=== PATIENT | female | born 1975 | race Caucasian/White ===

== ENCOUNTER 2016-05-15 00:08 | Inpatient (IN) ==
[2016-05-15] MEDS ORDERED: LORazepam 2 MG/1 ML VIAL IV STA (00:31)
[2016-05-15] MEDS ORDERED: SODIUM CHLORIDE 0.9% 2,000 ML IV STA (00:31)
[2016-05-15] MEDS ORDERED: HALOPERIDOL 5 MG/ML AMP IM STA (00:31)
[2016-05-15] MEDS ORDERED: HALOPERIDOL 5 MG/ML AMP ONE (00:35)
[2016-05-15] MEDS ORDERED: LORazepam 2 MG/1 ML VIAL ONE (00:36)
--- NOTE | 2016-05-15 00:44 | Emergency Department Note ---
Arrival - Arrival ED Nursing Triage Note: pt to er 10 via ems coming from home with c/o having drug abuse possible spice usage. Mode of Arrival: Stretcher Limitations: Altered Mental Status Source: EMS - History of Present Illness Onset (ago): hour(s) (onset of symptoms in the last 2 hours) Consistency: constant <Jose Matta - Last Filed: 05/15/16 01:45> <Surinder Mayers - Last Filed: 05/15/16 04:16> - Arrival Chief Complaint: Psychiatric Time Seen by Provider: 05/15/16 00:31 - History of Present Illness HPI Narrative: This 40-year-old white female presents via EMS having been called to her home because of bizarre behavior and hallucinations. The patient currently is babbling incoherently and obviously by her head movements and eye movements is having visual and auditory hallucinations. It is impossible for any type of history to be cleaned from the woman as she currently is in a panic mode. EMS had no insight into what may have transpired prior to their call as far as drug use. Certainly the patient cannot give us any information. (Jose Matta) Allergies/Adverse Reactions: Allergies Allergy/AdvReac Type Severity Reaction Status Date / Time Unable to Obtain Allergy Verified 05/15/16 01:04 Home Medications: Home Medications Medication Instructions Recorded Confirmed Type Unable To Obtain [Unable to Obtain] 05/15/16 05/15/16 History Review of System - Review of System ROS unobtainable: due to mental status <Jose Matta - Last Filed: 05/15/16 01:45> Medical,Surgical,& Family Hx - Social History Smoking Status: Smoker, status unknown Frequency of Alcohol Use: Unknown Type of Drug Use: Unknown <Jose Matta - Last Filed: 05/15/16 01:45> Exam <Jose Matta - Last Filed: 05/15/16 01:45> <Surinder Mayers - Last Filed: 05/15/16 04:16> Physical Examination: GENERAL: Well developed, well nourished white female thrashing on the gurney yelling out incoherently. HEENT: Normocephalic. No trauma. Moist mucous membranes. EOMI. PERRLA. ENT clear NECK: Supple. No adenopathy. CARDIAC: Regular. No murmurs. Heart rate 140 CHEST: Clear to auscultation. No respiratory distress. O2 sat 100% ABDOMEN: Soft. Nontender. Active bowel sounds. EXTREMITIES: No trauma. Normal ROM. No pedal edema. SKIN: No diaphoresis. No rash. NEURO: Alert. In manic mode with motor sensory vibratory intact. No focal deficits. (Jose Matta) Vital Signs: Vital Signs Temperature 97.6 F 05/15/16 00:08 Pulse Rate 142 H 05/15/16 00:08 Respiratory Rate 22 05/15/16 00:08 Blood Pressure 167/97 05/15/16 00:08 O2 Sat by Pulse Oximetry 100 05/15/16 00:08 (Jose Matta) (Surinder Mayers) Course <Jose Matta - Last Filed: 05/15/16 01:45> <Surinder Mayers - Last Filed: 05/15/16 04:16> Course Narrative: CT head is negative. Patient U DS is positive for amphetamines, cocaine, marijuana. Alcohol is negative. CK is relatively normal. Patient was given Haldol and Ativan. She is resting comfortably and protecting her airway. Hospitalist has been consulted and will admit for acute intoxication. (Surinder Mayers) Results - Labs CBC & BMP: 05/15/16 00:20 05/15/16 00:20 <Jose Matta - Last Filed: 05/15/16 01:45> - Labs CBC & BMP: 05/15/16 00:20 05/15/16 00:20 <Surinder Mayers - Last Filed: 05/15/16 04:16> - Labs Labs: I have reviewed the blood work and noted its gross normalcy of noted UDS positive for meth, cocaine, and pot. (Jose Matta) - Impressions EKG: Sinus tachycardia at 130 with normal VT interval and QRS duration with nonspecific ST changes. No acute injury pattern noted. (Jose Matta) Disposition <Jose Matta - Last Filed: 05/15/16 01:45> <Surinder Mayers - Last Filed: 05/15/16 04:16> Clinical Impression: polysubstance abuse
[2016-05-15 00:51] LABS: Basophils % 0.3 % (0.0-0.8); Eosinophils # 0.3 10*3/uL (0.0-0.87); Eosinophils % 2.8 % (0.00-10.9); Hematocrit 43.2 VOL% (35.7-47.0); Hemoglobin 14.6 GM/DL (12.0-16.0); Immature Granulocytes % 0.3 %; Immature Granulocytes Absolute 0.03 #; Lymphocytes % 20.5 % (21.3-54.2); Mean Corpuscular HGB Conc 33.8 GM/DL (32-36); Mean Corpuscular Hemoglobin 27 PG (27-34); Mean Corpuscular Volume 81.2 FL (87-102); Mean Platelet Volume 11.7 FL (9.6-12.0); Monocytes # 0.9 10*3/uL (0.11-0.8); Monocytes % 9.3 % (1.7-12.7); Neutrophils # 6.5 10*3/uL (1.4-7.4); Neutrophils % 66.8 % (38.7-73.9); Platelet Count 285 10*3/uL (130-400); Red Blood Count 5.32 10*6/uL (3.8-5.5); Red Cell Distribution Width 15.2 % (9.3-17.3); White Blood Count 9.7 10*3/uL (4.5-13.71)
[2016-05-15 01:02] LABS: Alanine Aminotransferase 19 U/L (13-56); Albumin 4.4 G/DL (3.4-5.0); Alkaline Phosphatase 96 U/L (45-117); Aspartate Amino Transferase 17 U/L (0-37); Calcium 9.3 MG/DL (8.5-10.1); Total Protein 7.6 G/DL (6.4-8.3)
[2016-05-15 01:03] LABS: Acetaminophen < 2.0 UG/ML (10-30); Blood Urea Nitrogen 21 MG/DL (7-18); Glucose 279 MG/DL (74-106); Salicylate < 2.8 MG/DL (2.8-20); Sodium 143 MMOL/L (136-145); Troponin I Only < 0.015 NG/ML (0.00-0.045)
--- NOTE | 2016-05-15 01:05 | EKG Report ---
Stationary ECG Study [facility] ER Test Date: 05/15/2016 1:01:41 AM Pat Name: JON LOPEZ Department: Room: Gender: F Irradiated [employer] Handler: [id number] : [id number] Requested by: Jose Barclay Order Number: [id number] Gerda MD: ANTONY MOODY Intervals [place] Rate: 131 P: 67 MA: 139 QRS: 52 QRSD: 86 T: 59 QT: 333 QTc: 410 Interpretive Statements SINUS TACHYCARDIA WITH MILD NON-SPECIFIC ST-T DEPRESSION Electronically Signed On 05-15-16 11:00:43 [employer] by ANTONY MOODY [email or web address]
[2016-05-15 01:15] LABS: Apearance,Urine Slightly Hazy (Clear); Bilirubin,Urine Negative (Negative); Blood, Urine Small mg/dL (Negative); Glucose,Urine (UA) >=500 mg/dL (Negative); Hyaline Casts,Urine 3 /LPF (0-3); Ketones,Urine 20 mg/dL (Negative); Mucus,Urine Many /LPF (Occasional); Nitrite,Urine Negative (Negative); Protein,Urine 30 MG/DL; RBC,Urine 2 /HPF (0-4); Squamous Epithelial Cell,Urine Occasional /HPF (0-10); Urine Color Yellow (Yellow); Urine Specific Gravity 1.025 (1.001-1.035); WBC,Urine 3 /HPF (0-6)
[2016-05-15] MEDS ORDERED: POTASSIUM BICARB EFFERVESCENT 25 MEQ TABLET PO ONE (01:36)
[2016-05-15 01:38] LABS: Barbiturates Screen,Urine Negative (Negative); Benzodiazepines Screen,Urine Negative (Negative); Cannabinoid Screen,Urine Positive (Negative); Opiate Screen,Urine Negative (Negative); Phencyclidine Screen,Urine Negative (Negative)
[2016-05-15] MEDS ORDERED: POTASSIUM CHLORIDE 20 MEQ PACK ONE (01:42)
--- NOTE | 2016-05-15 05:43 | Hospitalist History & Physical ---
Assessment and Plan (1) Acute metabolic encephalopathy Status: Acute Assessment and plan: The patient appears to have symptoms of synthetic cannabinoids use. We will going to admit her to intensive care unit for close monitoring. The patient does not require intubation for protection of airway at this time. Current Visit: Yes (2) Polysubstance abuse Status: Acute Current Visit: Yes History of Present Illness Chief complaint: altered mental status History of present illness: Ms. Perry is a 40 year old female who was brought from home via ambulance due to altered mental status following polysubstance abuse. The patient's symptoms at the time of admission to the emergency room were moderate to severe , continuous, and improved after sedation. The patient is presently resting quietly on the gurney in the emergency room she appears confused but is not agitated as she was when she was admitted. The patient seems to have acute metabolic encephalopathy due to polysubstance abuse which may include synthetic cannabinoids. Home Medications Medication Instructions Recorded Confirmed Type Unable To Obtain [Unable to Obtain] 05/15/16 05/15/16 History Allergies Allergy/AdvReac Type Severity Reaction Status Date / Time Unable to Obtain Allergy Verified 05/15/16 01:04 Medical,Surgical,& Family Hx - Medical History Medical History: noncontributory - Social History Smoking Status: Smoker, status unknown Frequency of Alcohol Use: Unknown Type of Drug Use: Cocaine, Marijuana, Methamphetamine Marital Status: Legally Lives With:: Significant Other Functional capacity: independent ambulation ROS unobtainable: due to mental status Exam - Constitutional Vitals: Period Temp Pulse Resp BP Sys/Frias Pulse Ox Last 24 Hr 97.6 F 142 22 167/97 100 Exam: Constitutional System: Mild distress. No tremulousness. Resting in bed and confused. The patient appears sedated. The patient is guarding airway Head: Normocephalic, atraumatic. Ears, Nose and Throat System: No evidence of Otitis or Mastoiditis. No epistaxis or discharge Eyes System: Pupils equal, round, and reactive. Extraocular muscles intact. Neck: Supple, without adenopathy, No jugular venous distention. No thyromegaly , neck mass, or prior surgery apparent. Respiratory System: Chest clear to auscultation. Cardiovascular System: Heart with regular rate and rhythm. No murmur. GI System: Abdomen soft, nontender. Normoactive bowel sounds present. Musculoskeletal System: limbs with no pedal edema. Full distal pulses. Neurological System: The patient is sedated and resting quietly at present Psychiatric System: The patient is passive it was drawn at this time Results - Labs CBC & BMP: 05/15/16 00:20 05/15/16 00:20 Lab Results: I have reviewed the past 24 hour labs
[2016-05-15] MEDS ORDERED: ONDANSETRON 4 MG/2 ML VIAL IV PRN (06:09)
[2016-05-15] MEDS ORDERED: ZIPRASIDONE 20 MG/1 ML VIAL IM PRN (06:09)
[2016-05-15] MEDS: SODIUM CHLORIDE 0.9% 1,000 ML IV SCH ×2 (07:31→15:15)
[2016-05-15] MEDS: ENOXAPARIN 40 MG/0.4 ML SYRINGE SUBCUT SCH (07:32)
[2016-05-15] MEDS ORDERED: GLUCAGON 1 MG VIAL IM PRN (08:44)
[2016-05-15] MEDS ORDERED: LORazepam 0.5 MG TABLET PO PRN (08:44)
[2016-05-15] MEDS ORDERED: DEXTROSE 50% 25 GM/50 ML VIAL IV PRN (08:44)
[2016-05-15] MEDS: NICOTINE 21 MG/24 HR PATCH TRANSDERM SCH (09:06)
[2016-05-15] MEDS: INSULIN LISPRO 100 UNIT/ML SUBCUT SCH ×3 (11:32→22:50)
--- NOTE | 2016-05-15 13:30 | Hospitalist Progress Note ---
Assessment and Plan (1) Bipolar 1 disorder Status: Acute Assessment and plan: needs evaluation by psych, outpatient [facility] Current Visit: Yes (2) Polysubstance abuse Status: Acute Assessment and plan: nicotine patch and ativan prn Current Visit: Yes (3) Hypokalemia Status: Acute Assessment and plan: k dur 40 meq times one now Current Visit: Yes Hospitalist: Subjective Interval history: Patient denies any thoughts of trying to harm herself. I asked patient where she has a history of depression or anxiety but she had said no. Her mother was in the room and her mother said that that schizophrenia and bipolar runs in the family in fact her sister is also bipolar. I asked patient if she was having any hallucinations is far is voices or visual hallucinations. She says that she had some visual hallucinations but it is mainly the voices. I asked her if the voices are asking her to hurt herself or hurt others and she said no. Discussed case with Dr. Hoffman over [facility] and he feels this could be handled as an outpatient. Exam - Constitutional Vitals: Period Temp Pulse Resp BP Sys/Frias Pulse Ox Last 24 Hr 98.1 F 86-106 13-21 97-120/59-91 97-100 Exam: HR-Tachy lungs-CTAB GI-+bs soft and nt psych reports hearing voices and having visual hallucinations, denies suicidal or homicidal thoughts or voices Results - Labs CBC & BMP: 05/15/16 00:20 05/15/16 00:20 Lab Results: I have reviewed the past 24 hour labs Specialty Discharge - Follow Up or Referrals - Discharge Medications No Action No Known Home Medications [No Known Home Medications]
[2016-05-15] MEDS ORDERED: POTASSIUM CHLORIDE 20 MEQ TABLET PO ONE (13:31)
--- NOTE | 2016-05-15 16:40 | CT Report ---
History: Acute metabolic encephalopathy. Hallucinations Date: 05/15/2016 Study: CT head without contrast Comparison exam: No previous Transaxial CT sections were obtained through the head without IV contrast. Total DLP measures 942.4 mGy*cm. The study was also reviewed by [facility]. The ventricles are midline in position without evidence of hydrocephalus. There is no mass or parenchymal hemorrhage. There is no gross CT evidence of acute cortical stroke. There is no extra-axial hematoma. The partially visualized paranasal sinuses and mastoid air cells are clear. Impression: No acute intracranial process PROCEDURE INTERPRETED AT [facility] DEPARTMENT OF RADIOLOGY Final Report Signed by: Dr. Sunshine Solorio
[2016-05-16 06:16] LABS: Basophils % 0.4 % (0.0-0.8); Eosinophils # 0.3 10*3/uL (0.0-0.87); Eosinophils % 5.3 % (0.00-10.9); Hematocrit 39.6 VOL% (35.7-47.0); Immature Granulocytes % 0.4 %; Immature Granulocytes Absolute 0.02 #; Lymphocytes % 41.1 % (21.3-54.2); Mean Corpuscular HGB Conc 32.8 GM/DL (32-36); Mean Corpuscular Hemoglobin 28 PG (27-34); Mean Corpuscular Volume 85.5 FL (87-102); Mean Platelet Volume 11.9 FL (9.6-12.0); Monocytes # 0.4 10*3/uL (0.11-0.8); Monocytes % 8.8 % (1.7-12.7); Neutrophils # 2.2 10*3/uL (1.4-7.4); Platelet Count 185 10*3/uL (130-400); Red Blood Count 4.63 10*6/uL (3.8-5.5); Red Cell Distribution Width 15.5 % (9.3-17.3); White Blood Count 4.9 10*3/uL (4.5-13.71)
[2016-05-16 06:45] LABS: Albumin 3.1 G/DL (3.4-5.0); Bilirubin,Total 0.6 MG/DL (0.2-1.0); Calcium 8.5 MG/DL (8.5-10.1); Osmolality,Calculated 289.4 MOS/KG (273-304); Potassium 4.6 MMOL/L (3.5-5.1); Total Protein 5.7 G/DL (6.4-8.3)
--- NOTE | 2016-05-16 08:20 | Discharge Summary ---
<Sue Lan - Last Filed: 05/16/16 08:15> Hospital Course - Hospital Course Hospital Course: Ms. Perry was admitted on 05/15/16 with acute metabolic encephalopathy due to synthetic cannabinoid use. She also has a history of polysubstance abuse. She did not require intubation but she did require some sedation for her agitation on admission. She was also found to have bipolar 1 disorder. She will need psych eval done at [facility] as an outpatient. She was noted to be hypokalemic and this was replaced with PO potassium and is now back up to 4.6. Today, her labs are normal, as are her vital signs. She is ready for discharge today with psych follow up at [place]. She does have a family hx of bipolar disorder and schizophrenia. At this time, she states that she is not depressed and is not having thoughts of suicide or homicide. She will be discharged home on appropriate medications. - Time spent with patient Time with patient DS: Greater than 30 minutes (due to plan, doc and med rec.) Diagnosis - Discharge Diagnosis (1) Acute metabolic encephalopathy Status: Acute (2) Bipolar 1 disorder Status: Acute (3) Hypokalemia Status: Acute (4) Polysubstance abuse Status: Acute Specialty Discharge - Follow Up or Referrals - Discharge Medications No Action No Known Home Medications [No Known Home Medications] Discharge Plan - Discharge Data Disposition: Disch To Home/Self Care - Discharge Medications No Action No Known Home Medications [No Known Home Medications] - Follow Up or Referral Follow Up: [facility] [Provider Group] - 2 Weeks (diabetes ) dr dino [Other] - 1 Week - Forms/Instructions Exam - Constitutional Vitals: Period Temp Pulse Resp BP Sys/Frias Pulse Ox Last 24 Hr 98.0 F-98.7 F 72-105 16-21 106-122/61-82 96-100 Discharge Results Labs on day of discharge: Labs from last 24 hours 05/16/16 05/16/16 05/16/16 07:46 05:25 05:25 WBC 4.9 D RBC 4.63 Hgb 13.0 Hct 39.6 MCV 85.5 L MCH 28 MCHC 32.8 RDW 15.5 Plt Count 185 D MPV 11.9 Neut % (Auto) 44.0 Lymph % (Auto) 41.1 [place] % (Auto) 8.8 Eos % (Auto) 5.3 Baso % (Auto) 0.4 Neut # (Auto) 2.2 Lymph # (Auto) 2.0 [place] # (Auto) 0.4 Eos # (Auto) 0.3 Baso # (Auto) 0.0 Immature Gran % 0.4 Nucleated RBC % 0.0 Immature Gran # 0.02 Nucleated RBCs # 0.00 Sodium 147 H Potassium 4.6 Chloride 115 H Carbon Dioxide 25 Anion Gap 11.6 BUN 11 Creatinine 0.80 GFR Calculation 90 BUN/Creatinine Ratio 13.00 Glucose 80 POC Glucose 84 Calculated Osmolality 289.4 Calcium 8.5 Magnesium 2.0 Total Bilirubin 0.60 AST 21 ALT 15 Alkaline Phosphatase 74 Total Protein 5.7 L Albumin 3.1 L Globulin 2.6 Albumin/Globulin Ratio 1.1 Urine Test 05/16/16 05/15/16 05/15/16 01:24 19:19 15:34 WBC RBC Hgb Hct MCV MCH MCHC RDW Plt Count MPV Neut % (Auto) Lymph % (Auto) [place] % (Auto) Eos % (Auto) Baso % (Auto) Neut # (Auto) Lymph # (Auto) [place] # (Auto) Eos # (Auto) Baso # (Auto) Immature Gran % Nucleated RBC % Immature Gran # Nucleated RBCs # Sodium Potassium Chloride Carbon Dioxide Anion Gap BUN Creatinine GFR Calculation BUN/Creatinine Ratio Glucose POC Glucose 95 87 81 Calculated Osmolality Calcium Magnesium Total Bilirubin AST ALT Alkaline Phosphatase Total Protein Albumin Globulin Albumin/Globulin Ratio Urine Test 05/15/16 05/15/16 11:53 11:29 WBC RBC Hgb Hct MCV MCH MCHC RDW Plt Count MPV Neut % (Auto) Lymph % (Auto) [place] % (Auto) Eos % (Auto) Baso % (Auto) Neut # (Auto) Lymph # (Auto) [place] # (Auto) Eos # (Auto) Baso # (Auto) Immature Gran % Nucleated RBC % Immature Gran # Nucleated RBCs # Sodium Potassium Chloride Carbon Dioxide Anion Gap BUN Creatinine GFR Calculation BUN/Creatinine Ratio Glucose POC Glucose 87 Calculated Osmolality Calcium Magnesium Total Bilirubin AST ALT Alkaline Phosphatase Total Protein Albumin Globulin Albumin/Globulin Ratio Urine Test Negative DS: Provider Date of admission: 05/15/16 05:46 Primary care physician: . No PCP Attending physician on admission: Sheyla Parks MD Discharging clinician: Sue Lan NP Expected date of discharge: 05/16/16 <KaseySheyla R - Last Filed: 05/16/16 11:10> Hospital Course - Hospital Course Hospital Course: Patient seen and examined. Hospital course reviewed and edited. Patient denies using synthetic marijuana. Patient does admit to using regular marijuana with cocaine and methamphetamine. Explained to her though that with her having bipolar with voices that this would just accentuate the voices. The voices are not asking her to hurt her self or others. I spoke with [facility] and they feel that she is safe for outpatient therapy. I agree and we will set her up to see [facility]. - Time spent with patient Time with patient DS: Less than 30 minutes Diagnosis - Discharge Diagnosis (1) Bipolar 1 disorder Status: Acute (2) Polysubstance abuse Status: Acute (3) Hypokalemia Status: Acute Discharge Plan - Discharge Data Condition at Discharge: Stable Discharge Diet: diabetic diet Activity: resume usual activities as tolerated Hygiene: no restrictions Weight Bearing at Discharge: full weight bearing Exam - Constitutional General appearance: normal weight, no acute distress - Respiratory Respiratory exam: Present: clear to auscultation bilaterally, rhonchi. Absent: wheezes - Cardiovascular Cardiovascular exam: Present: regular rate and rhythm. Absent: systolic murmur - GI/Abdominal GI/Abdominal exam: Present: normal bowel sounds, soft. Absent: tenderness - Psychiatric Psychiatric exam: Present: other (tearful). Absent: homicidal ideation, manic, suicidal ideation
[2016-05-16] MEDS: ENOXAPARIN 40 MG/0.4 ML SYRINGE SUBCUT SCH (08:52)
[2016-05-16] MEDS: NICOTINE 21 MG/24 HR PATCH TRANSDERM SCH (08:52)
[2016-05-16 13:44] VITALS: BP 104/58
== END 2016-05-16 12:15 | disposition home or self-care (01) | DRG 917 ==
LOC: N.ED 00:08 → N.EDINP 05:46 → N.ICU 06:11 → N.2E 15:31
PROVIDERS: ADMIT Internal Medicine; ATTEND Internal Medicine